=== PATIENT | male | born 1970 | race Native Hawaiian/Other Pacific Islander ===

== ENCOUNTER 2018-03-02 06:08 | Emergency (ER) | payer SELFPAY ==
--- NOTE | 2018-03-02 07:37 | C.PDOC ---
History Of Present Illness 47 years old male presents to ED for evaluation of not being able to sleep since the last 4 days. Patient reports his blood pressure has been elevated due to symptoms. Patient also reports he did not try over the counter medications. Denies headache, dizziness, palpitation, SOB, nausea, vomiting, or diarrhea. Patient's accu-check was checked in ER. Patient also states he has a scheduled appointment with PMD tomorrow. Time Seen by Provider: 03/02/18 07:13 Chief Complaint (Nursing): Medical Clearance History Per: Patient History/Exam Limitations: no limitations Onset/Duration Of Symptoms: Hrs Current Symptoms Are (Timing): Still Present Recent travel outside of the [place]: No Past Medical History Reviewed: Historical Data, Nursing Documentation, Vital Signs Vital Signs: Last Vital Signs Temp 98.5 F 03/02/18 06:16 Pulse 90 03/02/18 06:16 Resp 20 03/02/18 06:16 BP 142/91 H 03/02/18 06:16 Pulse Ox 98 03/02/18 06:16 - Medical History PMH: No Chronic Diseases Surgical History: No Surg Hx Family History: States: No Known Family Hx - Social History Hx Alcohol Use: No Hx Substance Use: No - Immunization History Hx Tetanus Toxoid Vaccination: Yes Hx Influenza Vaccination: No Hx Pneumococcal Vaccination: Yes Review Of Systems Constitutional: Negative for: Fever, Chills Cardiovascular: Negative for: Chest Pain Respiratory: Negative for: Cough, Shortness of Breath Gastrointestinal: Negative for: Nausea, Vomiting, Abdominal Pain, Diarrhea Skin: Negative for: Rash Neurological: Negative for: Weakness, Numbness Physical Exam - Physical Exam Appears: Non-toxic, No Acute Distress Skin: Normal Color, Warm, Dry, No Rash Head: Atraumatic, Normacephalic Eye(s): bilateral: Normal Inspection, PERRL, EOMI Oral Mucosa: Moist Neck: Normal ROM, Supple Chest: Symmetrical, No Tenderness Cardiovascular: Rhythm Regular, No Murmur Respiratory: Normal Breath Sounds, No Rales, No Rhonchi, No Wheezing Gastrointestinal/Abdominal: Soft, No Tenderness Extremity: Left: Normal Color And Temperature, Normal ROM Pulses: Left Radial: Normal, Right Radial: Normal Neurological/Psych: Oriented x3, Normal Speech Gait: Steady ED Course And Treatment O2 Sat by Pulse Oximetry: 98 (RA) Pulse Ox Interpretation: Normal Disposition Counseled Patient/Family Regarding: Diagnosis, Need For Followup, Rx Given - Disposition Referrals: Kay Roy FNP [Advanced Practice Nurse] - Disposition: HOME/ ROUTINE Disposition Time: 07:45 Condition: STABLE Additional Instructions: FOLLOW UP WITH YOUR DOCTOR TOMORROW SCHEDULED USE BENADRYL NEEDED RETURN TO ER IF SYMPTOMS WORSEN Prescriptions: DiphenhydrAMINE [Benadryl] 25 mg PO Q6 PRN #20 cap PRN Reason: Insomnia Instructions: Insomnia (DC) Forms: [employer] (Ukrainian) Print Language: GERMAN - Clinical Impression Clinical Impression: Medical assessment, Insomnia - Scribe Statement The provider has reviewed the documentation as recorded by the Scribe Kristine Quintana All medical record entries made by the Sheilaibe were at my direction and personally dictated by me. I have reviewed the chart and agree that the record accurately reflects my personal performance of the history, physical exam, medical decision making, and the department course for this patient. I have also personally directed, reviewed, and agree with the discharge instructions and disposition.
[2018-03-02 08:44] VITALS: BP 145/88; PULSE 89; RESP 18; TEMP 98
[2018-03-02 09:56] VITALS: O2SAT 98
== END 2018-03-02 08:44 | disposition home or self-care (01) ==
LOC: C.ER 06:08
DX: G47.00 Insomnia, unspecified (principal)